=== PATIENT | female | born 1965 | race African-American/Black ===

== ENCOUNTER 2016-10-08 10:20 | Emergency (ER) | payer MEDICAID ==
[~2016-10-08] VITALS: Ht 167.6 cm; Wt 70.0 kg
[2016-10-08 10:25] VITALS: BP 127/67
== END 2016-10-08 11:55 | disposition left against medical advice (07) ==
LOC: ER 11:42
DX: Z76.1 Encounter for health supervision and care of foundling (principal); E11.9 Type 2 diabetes mellitus without complications

== ENCOUNTER 2016-10-08 14:13 | Emergency (ER) | payer MEDICAID ==
[~2016-10-08] VITALS: Ht 167.6 cm; Wt 70.0 kg
[2016-10-08 14:25] VITALS: BP 143/86
== END 2016-10-08 17:19 | disposition home or self-care (01) ==
LOC: ER 16:29
DX: L29.8 Other pruritus (principal); E11.9 Type 2 diabetes mellitus without complications; Z88.2 Allergy status to sulfonamides
CPT/HCPCS: 99283

== ENCOUNTER 2017-02-11 08:40 | Emergency (ER) | payer MEDICAID ==
[~2017-02-11] VITALS: Ht 167.6 cm; Wt 68.0 kg
[2017-02-11 08:45] VITALS: BP 143/90
== END 2017-02-11 09:33 | disposition home or self-care (01) ==
LOC: ER 08:58
DX: L03.111 Cellulitis of right axilla (principal); E11.9 Type 2 diabetes mellitus without complications; Z88.2 Allergy status to sulfonamides
CPT/HCPCS: 99281; 99283

== ENCOUNTER 2017-02-26 12:52 | Emergency (ER) | payer MEDICAID, OTHER ==
[~2017-02-26] VITALS: Ht 162.6 cm; Wt 65.0 kg
[2017-02-26 16:32] VITALS: BP 148/90
== END 2017-02-26 16:32 | disposition home or self-care (01) ==
LOC: ER 13:42
DX: B86 Scabies (principal); R21 Rash and other nonspecific skin eruption; E11.9 Type 2 diabetes mellitus without complications; Z87.440 Personal history of urinary (tract) infections; Z88.2 Allergy status to sulfonamides
CPT/HCPCS: 99281

== ENCOUNTER 2017-03-30 22:25 | Emergency (ER) | payer MEDICAID ==
[~2017-03-30] VITALS: Ht 167.6 cm; Wt 73.0 kg
[2017-03-31 02:15] VITALS: BP 121/77
== END 2017-03-31 02:16 | disposition home or self-care (01) ==
LOC: ER 22:26
DX: R21 Rash and other nonspecific skin eruption (principal); F17.200 Nicotine dependence, unspecified, uncomplicated; B86 Scabies; Z59.0 Homelessness; Z88.2 Allergy status to sulfonamides
CPT/HCPCS: 99282; Z7610

== ENCOUNTER 2017-05-31 16:07 | Emergency (ER) | payer MEDICAID ==
[~2017-05-31] VITALS: Ht 170.2 cm; Wt 75.0 kg
[2017-05-31 16:28] VITALS: BP 167/101
== END 2017-06-01 03:46 | disposition home or self-care (01) ==
LOC: ER 16:56
DX: Z76.0 Encounter for issue of repeat prescription (principal); M19.90 Unspecified osteoarthritis, unspecified site; Z88.2 Allergy status to sulfonamides
CPT/HCPCS: 99283

== ENCOUNTER 2017-06-14 10:03 | Emergency (ER) | payer MEDICAID ==
[~2017-06-14] VITALS: Ht 167.6 cm; Wt 77.0 kg
[2017-06-14 10:25] VITALS: BP 158/92
== END 2017-06-14 12:48 | disposition home or self-care (01) ==
LOC: ER 10:03
DX: L98.9 Disorder of the skin and subcutaneous tissue, unspecified (principal); E11.9 Type 2 diabetes mellitus without complications; Z88.2 Allergy status to sulfonamides
CPT/HCPCS: 99282

== ENCOUNTER 2017-06-17 15:26 | Emergency (ER) | payer MEDICAID ==
[~2017-06-17] VITALS: Ht 165.1 cm; Wt 73.0 kg
[2017-06-17 15:28] VITALS: BP 169/94
== END 2017-06-17 19:23 | disposition left against medical advice (07) ==
LOC: ER 15:41
DX: B99.8 Other infectious disease (principal); H10.89 Other conjunctivitis; E11.9 Type 2 diabetes mellitus without complications; Z88.2 Allergy status to sulfonamides
CPT/HCPCS: 99281

== ENCOUNTER 2017-06-24 13:19 | Emergency (ER) | payer MEDICAID ==
[~2017-06-24] VITALS: Ht 167.6 cm; Wt 76.0 kg
[2017-06-24 13:24] VITALS: BP 129/73
== END 2017-06-24 15:23 | disposition left against medical advice (07) ==
LOC: ER 13:52
DX: Z53.21 Procedure and treatment not carried out due to patient leaving prior to being seen by health care provider (principal)

== ENCOUNTER 2017-07-30 06:33 | Emergency (ER) | payer MEDICAID ==
[~2017-07-30] VITALS: Ht 167.6 cm; Wt 70.0 kg
[2017-07-30 07:26] VITALS: BP 134/85
== END 2017-07-30 09:57 | disposition home or self-care (01) ==
LOC: ER 06:33
DX: H10.9 Unspecified conjunctivitis (principal); M79.1 Myalgia; E11.9 Type 2 diabetes mellitus without complications; F32.9 Major depressive disorder, single episode, unspecified; M19.90 Unspecified osteoarthritis, unspecified site; Z88.2 Allergy status to sulfonamides
CPT/HCPCS: 81025; 99283

== ENCOUNTER 2017-08-06 17:47 | Emergency (ER) | payer MEDICAID ==
[~2017-08-06] VITALS: Ht 167.6 cm; Wt 75.0 kg
[2017-08-06 17:51] VITALS: BP 153/112
== END 2017-08-06 18:31 | disposition home or self-care (01) ==
LOC: ER 18:14
DX: M19.90 Unspecified osteoarthritis, unspecified site (principal); E11.9 Type 2 diabetes mellitus without complications; Z88.2 Allergy status to sulfonamides; Z98.890 Other specified postprocedural states
CPT/HCPCS: 99282

== ENCOUNTER 2017-08-11 18:22 | Emergency (ER) | payer MEDICAID ==
[~2017-08-11] VITALS: Ht 167.6 cm; Wt 61.0 kg
[2017-08-11 18:48] VITALS: BP 0/0
== END 2017-08-11 20:00 | disposition left against medical advice (07) ==
LOC: ER 19:10
DX: R21 Rash and other nonspecific skin eruption (principal); Z53.21 Procedure and treatment not carried out due to patient leaving prior to being seen by health care provider

== ENCOUNTER 2017-08-27 12:36 | Emergency (ER) | payer MEDICAID ==
[~2017-08-27] VITALS: Ht 167.6 cm; Wt 73.0 kg
[2017-08-27 12:38] VITALS: BP 121/75
== END 2017-08-27 13:57 | disposition home or self-care (01) ==
LOC: ER 13:31
DX: S30.810A Abrasion of lower back and pelvis, initial encounter (principal); K64.4 Residual hemorrhoidal skin tags; E11.9 Type 2 diabetes mellitus without complications; Z88.2 Allergy status to sulfonamides; Z98.890 Other specified postprocedural states; X58.XXXA Exposure to other specified factors, initial encounter; Y93.89 Activity, other specified; Y92.89 Other specified places as the place of occurrence of the external cause; Y99.8 Other external cause status
CPT/HCPCS: 99282

== ENCOUNTER 2017-09-14 19:25 | Emergency (ER) | payer MEDICAID | END 2017-09-14 20:25 | disposition left against medical advice (07) | LOC: ER 19:25 | DX: Z53.21 Procedure and treatment not carried out due to patient leaving prior to being seen by health care provider (principal) ==

== ENCOUNTER 2017-11-02 20:49 | Emergency (ER) | payer MEDICAID ==
[~2017-11-02] VITALS: Ht 170.2 cm; Wt 73.0 kg
[2017-11-03] MEDS ORDERED: IBUPROFEN 600MG TABLET PO ONE (03:15)
[2017-11-03 05:30] VITALS: BP 120/66
== END 2017-11-03 05:30 | disposition home or self-care (01) ==
LOC: ER 11-03 00:05
DX: M19.042 Primary osteoarthritis, left hand (principal); M19.041 Primary osteoarthritis, right hand; R03.0 Elevated blood-pressure reading, without diagnosis of hypertension; E11.9 Type 2 diabetes mellitus without complications; Z88.2 Allergy status to sulfonamides
CPT/HCPCS: 99283

== ENCOUNTER 2017-12-27 19:35 | Emergency (ER) | payer MEDICAID ==
[~2017-12-27] VITALS: Ht 167.6 cm; Wt 81.0 kg
[2017-12-27] MEDS ORDERED: IBUPROFEN 600MG TABLET PO ONE (22:45)
[2017-12-27] MEDS ORDERED: DIPHENHYDRAMINE 25MG CAPSULE PO ONE (22:45)
[2017-12-27 23:25] VITALS: BP 189/86
== END 2017-12-27 23:30 | disposition home or self-care (01) ==
LOC: ER 20:21
DX: M13.811 Other specified arthritis, right shoulder (principal); R21 Rash and other nonspecific skin eruption; R03.0 Elevated blood-pressure reading, without diagnosis of hypertension; Z88.2 Allergy status to sulfonamides
CPT/HCPCS: 81025; 99282; Q0163

== ENCOUNTER 2018-06-25 12:42 | Emergency (ER) | payer MEDICAID ==
[~2018-06-25] VITALS: Ht 170.2 cm; Wt 86.0 kg
[2018-06-25 12:47] VITALS: BP 126/50
== END 2018-06-25 16:14 | disposition home or self-care (01) ==
LOC: ER 12:42
DX: J20.9 Acute bronchitis, unspecified (principal); E11.9 Type 2 diabetes mellitus without complications; M19.90 Unspecified osteoarthritis, unspecified site; Z98.1 Arthrodesis status; Z88.2 Allergy status to sulfonamides
CPT/HCPCS: 71045; 99283

== ENCOUNTER 2019-02-22 13:18 | Emergency (ER) | payer MEDICAID ==
[~2019-02-22] VITALS: Ht 167.6 cm; Wt 95.0 kg
[2019-02-22] MEDS ORDERED: CARBAMIDE PEROXIDE 6.5% OTIC SOLN 15ML EACH EAR ONE (14:15)
[2019-02-22 15:44] VITALS: BP 147/74
== END 2019-02-22 15:48 | disposition home or self-care (01) ==
LOC: ER 13:18
DX: H61.23 Impacted cerumen, bilateral (principal); J45.909 Unspecified asthma, uncomplicated; M19.90 Unspecified osteoarthritis, unspecified site; Z98.1 Arthrodesis status; Z88.2 Allergy status to sulfonamides
CPT/HCPCS: 99282

== ENCOUNTER 2021-03-23 08:19 | Emergency (ER) | payer MEDICAID ==
[~2021-03-23] VITALS: Ht 167.6 cm; Wt 90.0 kg
[2021-03-23 08:21] VITALS: BP 143/79
[2021-03-23] MEDS ORDERED: ACETAMINOPHEN 325MG TABLET PO ONE (09:15)
[2021-03-23] MEDS ORDERED: ACET-2708 MT (10:24)
== END 2021-03-23 10:39 | disposition home or self-care (01) ==
LOC: ER 08:19
DX: M25.561 Pain in right knee (principal); I10 Essential (primary) hypertension; J45.909 Unspecified asthma, uncomplicated; Z88.2 Allergy status to sulfonamides
CPT/HCPCS: 73562; 99283